=== PATIENT | female | born 1960 | race Caucasian/White ===

== ENCOUNTER → 2022-11-06 | Outpatient (CLI) | payer OTHER, SELFPAY ==
--- NOTE | 2022-11-06 07:15 | KNEE_PTH ---
PATIENT: KENYETTA WALTERS LOC: [facility] U#:[id number] AGE/SX: 62/F ROOM: RE11/06/[address]: Dr. Kamaljit Manzanares MD : 1960 BED: DIS: 11/06/2022 SPEC #: [id number] RECD: 11/09/22 09:28 STATUS: ARNOLD REAngus #: [id number] IDA: 11/06/22 07:[address]: Kamaljit Manzanares DEPT: SURGICAL PATHOLOGY RECD BY: Scarlett Estes ENTERED: 11/09/22 09:28 SP TYPE: TOTAL KNEE OTHR DR: GENNY Tissues: Knee, NOS Procedures: Decalcification bone/plaque Surgery Specimen Level IV HEADER OPERATION: Right total knee replacement PRE-OP DIAGNOSIS: Unilateral posttraumatic osteoarthritis right knee TISSUE SUBMITTED: Right knee bone and soft tissue MICROSCOPIC DIAGNOSIS Bone and soft tissue, right knee, total knee replacement/resection: Pieces of bone with degenerative osteoarthritic changes. PELON:almaz 11/12/2022 MICROSCOPIC DESCRIPTION Slides are reviewed. GROSS DESCRIPTION Received is one container designated bone and soft tissue right knee. The specimen consists of multiple fragments of rebolledo-yellow bone measuring in aggregate 10.0 x 10.0 x 3.0 cm. No soft tissue is identified. A number of bony fragments contain articular surfaces consistent with tibial plateau and femoral condyle and displaying prominent osteophyte formation, eburnation and bone erosion. Roofer Apprentice sections are submitted in one cassette after decalcification. / PELON:almaz 11/09/2022 TC:5 CPT: [id number], [id number]
== END | disposition home or self-care (01) ==
PROVIDERS: Referring Provider Orthopaedic Surgery; Visit Provider Orthopaedic Surgery
DX: M17.31 Unilateral post-traumatic osteoarthritis, right knee (principal)
CPT/HCPCS: 88305; 88311

== ENCOUNTER → 2022-11-17 | Outpatient (CLI) | payer OTHER, SELFPAY ==
--- NOTE | 2022-11-17 16:04 | VDLE_ITS ---
Reason For Study: pain RLE RIGHT GSV is normal. CFV is compressible, spontaneous, phasic, competent and demonstrates normal augmentation. FV is compressible, spontaneous, phasic, competent and demonstrates normal augmentation. POP V is compressible, spontaneous, phasic, competent and demonstrates normal augmentation. T/P Trunk is compressible. PTV is compressible. RT PerV is compressible. Procedure This is a venous duplex using B-mode, color flow and spectral Doppler. Exam performed in department. The exam was abbreviated due to the COVID 19 protocol. The exam was diagnostic. A preliminary report was called and/or faxed to Dr. Manzanares. VL/Venous Duplex US, Unilateral Interpretation Summary Deep veins of the right lower extremity are patent and compressible segmentally . There is no evidence of right lower extremity deep vein thrombosis. The right great sapheno us vein appears patent and compressible segmentally. Ordering Physician: Kamaljit Manzanares Referring Physician: Kamaljit Manzanares Performed By: Miles Levi RVLiz
== END | disposition home or self-care (01) ==
LOC: CVS 16:02
PROVIDERS: Referring Provider Orthopaedic Surgery; Visit Provider Orthopaedic Surgery
DX: M79.661 Pain in right lower leg (principal)
CPT/HCPCS: 93971